=== PATIENT | male | born 2005 | race Caucasian/White ===

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

== ENCOUNTER 2025-03-12 10:27 | Emergency (ER) | payer OTHER ==
[~2025-03-12] VITALS: Ht 175.2 cm; Wt 72.6 kg
[2025-03-12] MEDS ORDERED: CLINDAMYCIN HCL 300 MG CAPSULE PO ONE (11:20)
[2025-03-12] MEDS ORDERED: Bacitracin Zinc 14 GM TUBE T ONE (11:20)
[2025-03-12] MEDS ORDERED: CLINDAMYCIN HC300 MG PO (11:24)
== END 2025-03-12 12:35 | disposition home or self-care (01) ==
LOC: ED 10:27
DX: T25.211A Burn of second degree of right ankle, initial encounter (principal); T31.0 Burns involving less than 10% of body surface; Z88.1 Allergy status to other antibiotic agents; X19.XXXA Contact with other heat and hot substances, initial encounter; Y93.89 Activity, other specified; Y92.89 Other specified places as the place of occurrence of the external cause; Y99.8 Other external cause status

== ENCOUNTER 2025-03-18 00:02 | Emergency (ER) | payer OTHER ==
[~2025-03-18] VITALS: Ht 172.7 cm; Wt 77.1 kg
[~2025-03-18 00:02] MED LIST changes: +CLINDAMYCIN HC300 MG PO
[2025-03-18] MEDS ORDERED: Tetracaine Hydrochloride 0.5% 4 ML BOT OPH ONE (00:30)
[2025-03-18] MEDS ORDERED: LISSAMINE GREEN 1.5 MG STRIP OP ONE (00:35)
[2025-03-18] MEDS ORDERED: TOBRAMYCIN5 ML OP (01:22)
[2025-03-18] MEDS ORDERED: Dexamethasone/Tobramycin OPHTHALMIC 2.5 ML BOTTLE OPH ONE (01:25)
== END 2025-03-18 01:38 | disposition home or self-care (01) ==
LOC: ED 00:02
DX: S05.02XA Injury of conjunctiva and corneal abrasion without foreign body, left eye, initial encounter (principal); S05.01XA Injury of conjunctiva and corneal abrasion without foreign body, right eye, initial encounter; F90.9 Attention-deficit hyperactivity disorder, unspecified type; Z88.1 Allergy status to other antibiotic agents; X58.XXXA Exposure to other specified factors, initial encounter; Y93.89 Activity, other specified; Y92.89 Other specified places as the place of occurrence of the external cause; Y99.8 Other external cause status